=== PATIENT | male | born 1970 | race Two or more races ===

== ENCOUNTER 2019-11-09 08:41 | Outpatient (CLI) | payer OTHER | END 2019-11-09 09:11 | disposition home or self-care (01) | LOC: TOM 08:41 | DX: N28.1 Cyst of kidney, acquired (principal) ==

== ENCOUNTER 2024-07-05 13:58 | Outpatient (CLI) | payer OTHER | END 2024-07-05 14:10 | disposition home or self-care (01) | LOC: SONOGRAMA 13:58 | PROVIDERS: ATTEND Internal Medicine Gastroenterology | DX: K81.0 Acute cholecystitis (principal); K80.00 Calculus of gallbladder with acute cholecystitis without obstruction ==

== ENCOUNTER 2024-10-25 15:07 | Outpatient (CLI) | payer OTHER | END 2024-10-25 15:14 | disposition home or self-care (01) | LOC: SONOGRAMA 15:07 | DX: N28.1 Cyst of kidney, acquired (principal); Z12.9 Encounter for screening for malignant neoplasm, site unspecified ==